=== PATIENT | female | born 1985 | race Caucasian/White ===

== ENCOUNTER 2017-11-13 06:25 | Inpatient (IN) | payer BC, SELFPAY ==
[2017-11-13] MEDS: Lactated Ringers 1,000 ML 50 ML IV (06:56)
[2017-11-13 07:09] VITALS: BMI 27.6
[2017-11-13 07:27] LABS: Hematocrit 36.7 % (37-47); Hemoglobin 11.7 g/dl (12.0-15.0); Mean Corp Hgb Conc 31.9 g/gl (32-36); Mean Corpuscular Hgb 23.4 pg (27.0-32.0); Mean Corpuscular Volume 73.4 fL (81-99); Platelet Count 262 K/mm3 (150-450); RBC Distribution Width CV 15.2 % (11.6-14.6); RBC Distribution Width SD 39.8 fl (35.1-43.9); White Blood Count 12.3 K/mm3 (4.4-11.0)
[2017-11-13] MEDS: Oxytocin 30 units/NS 500 ml 30 UNITS/500 ML IV.SOLN 334 UNITS IV (07:30)
[2017-11-13 07:31] LABS: Scan Indicated on CBC? Y/N NO
[2017-11-13] MEDS: Ketorolac 30 MG/ML Syringe IV (07:42)
[2017-11-13] MEDS: Oxytocin 30 units/NS 500 ml 30 UNITS/500 ML IV.SOLN 167 UNITS IV (08:00)
--- NOTE | 2017-11-13 08:00 | PCM.HP.OB ---
History Date of Admission: 11/13/17 Final SLIME: 11/17/17 Gestational age: 39 Weeks and 3 Days History of this : GBS positive Pertinent Past Medical History: None Allergies No Known Allergies Allergy (Verified 11/13/17 07:02) Current Medications Acetaminophen (Tylenol) 325 - 650 mg PO Q4H PRN PRN PRN Reason: PAIN OR FEVER >100.4F Al Hydroxide/Mg Hydroxide (Mylanta Ii) 15 - 30 ml PO Q4H PRN PRN PRN Reason: INDIGESTION Citric Acid/Sodium Citrate (Bicitra) 30 ml PO UD PRN Penicillin G Potassium/Dextrose (Penicillin G Potassium) 3 mu in 50 mls @ 100 mls/hr IV Q4H SADE Lactated Ringer's () 1,000 mls @ 50 mls/hr IV .Q20H [facility] Last Admin: 11/13/17 06:56 Dose: 50 mls/hr Nalbuphine HCl (Nubain) 5 - 10 mg IV Q3H PRN PRN PRN Reason: PAIN (4-10/10) Ondansetron HCl (Zofran) 4 mg IV Q8H PRN PRN PRN Reason: NAUSEA Promethazine HCl (Phenergan (Ll)) 6.25 - 12.5 mg IV Q4H PRN PRN; Protocol PRN Reason: IF NAUSEA PERSISTS Sodium Chloride () 5 - 15 ml IV UD [facility] Last Admin: 11/13/17 07:48 Dose: Not Given Smoking Status: Never smoker Alcohol: None Drug Use: none Physical Exam General: Alert, Oriented x3 Assessment/Plan 32yo female in labor S/p within 1 hour of arrival to L&D
--- NOTE | 2017-11-13 08:06 | PCM.OB.VAG ---
Vaginal Delivery Maternal Presentation: Active Labor Amniotic Membrane Rupture Type: Artificial Amniotic Fluid Description: Clear Final SLIME: 11/17/17 Gestational age: 39 Weeks and 3 Days Date of Procedure: 11/13/17 Surgery/ Procedure Performed: Spontaneous Vaginal Delivery Type of Anesthesia: Local with 2% lidocaine - nitrous Description of Procedure: Patient c/c/+2. AROM clear fluid. Patient pushed & easily delivered head. Shoulders & body spontaneously followed. Infant placed on maternal abdomen where 3VC clamped & cut in delayed fashion. Placenta delivered with gentle traction. Good uterine tone obtained. Presentation: KEISHA Placental Delivery Description: Spontaneous Placenta Disposition: [facility] Cord Vessel Description: 3 Vessels Cord Entanglement: None Estimated Blood Loss: 200ml Infant A gender: Female (1 minute): 8 (5 minute): 9 Episiotomy Description: None Laceration: 2nd degree - perineal - repaired with 3-0 vicryl Medications given after delivery: IV Pitocin Complications: None
[2017-11-13] MEDS: 0.9% Saline Lock 10 ML Syringe IV (08:37)
[2017-11-13] MEDS: oxyCODONE 5 MG Tablet PO ×2 (09:07→15:49)
[2017-11-13 12:00] VITALS: BP 120/82; PULSE 90; RESP 18; TEMP 36.8
[2017-11-13] MEDS: Ibuprofen 600 MG Tablet PO ×2 (14:21→20:09)
[2017-11-13 15:41] VITALS: BP 121/82; PULSE 62; RESP 18; TEMP 36.7
[2017-11-13 19:30] VITALS: BP 120/86; PULSE 84; RESP 18; TEMP 36.4; O2SAT 98
[2017-11-14 00:15] VITALS: BP 113/72; PULSE 85; RESP 16; TEMP 36.9; O2SAT 98
[2017-11-14 04:10] VITALS: BP 115/90; PULSE 72; RESP 16; TEMP 36.4; O2SAT 98
[2017-11-14] MEDS: Ibuprofen 600 MG Tablet PO ×2 (07:57→14:12)
[2017-11-14] MEDS: Senna/Docusate Sodium 1 Tablet PO (07:57)
[2017-11-14 08:01] VITALS: BP 128/82; PULSE 81; RESP 16; TEMP 36.4; O2SAT 97
--- NOTE | 2017-11-14 08:29 | DCINST_ITS ---
Discharge Diet: No Restrictions Discharge Activity: Return to Normal Activity, May not drive while taking narcotic pain medications., May Shower May resume sexual activity in: 4-6 weeks Additional Activity Instructions:: Nothing in the vagina for 4-6 weeks. You may return to work/school in 6 weeks. Call your doctor if your incision/area has: Continuous Slow Oozing, Sudden Increased Bleeding, Increased Pain/ Swelling, Increased Redness, Foul Smelling Discharge Additional Instructions: If you experience any of the following, contact your healthcare provider. * Bleeding that soaks a pad every hour for 2 hours * Fever 100.4 or higher * Unrelieved incision or abdominal pain * Swelling, redness, discharge or bleeding from your incision or episiotomy site * Your incision begins to separate * Problems urinating (including inability to urinate or burning while urinating) . * Visual changes * Severe headache * Flu-like symptoms * Pain or redness in one of both of your breasts * Pain, warmth, tenderness or swelling in your legs, especially the calf area * Frequent nausea and vomiting * Symptoms of depression or anxiety If you experience any of the following, call 911 or go to the nearest Emergency Room. * Chest pain * Problems breathing * Seizure activity * Partial or complete paralysis of a body part, slurred speech, weakness or drooping of the face, or a sudden inability to walk or hold your balance Allergies/Adverse Reactions: Allergies No Known Allergies Allergy (Verified 11/13/17 07:02) Medications to take at Discharge Vits [Prenatabs FA ] 1 cap PO DAILY 06/23/13 Ibuprofen [Motrin] 600 mg PO Q6H PRN #60 tab 11/14/17 The following prescriptions were given: Ibuprofen [Motrin] 600 mg PO Q6H PRN #60 tab PRN Reason: Pain Orders to be completed after discharge: Electric breast pump Location: None Selected Please Follow Up With: Darren Alvarez - [phone] When: Call to make an appointment with your doctor's office in 6 weeks or as needed. If you had elevated Blood Pressure or 4th degree laceration you will need to be seen in 2 weeks.
--- NOTE | 2017-11-14 08:44 | PCM.PN.BLA ---
Progress Note S: Patient sitting up in bed at this time. Patient reports no issues; denies scotoma, dizziness or SILVESTRE. Denies issues with ambulation or issues with urination. Patient likely will be discharged to home tomorrow as baby did not receive full 2 doses of PCN abx for Positive GBS status. O: VSS, Afebrile Nipples without cracks or blisters, no ecchymoses, no erythema noted FF midline 2FB below umbilicus, scant rubra lochia perineum well approximated +2/4 reflexes in LE, no edema noted, negative calf tenderness to palpation A: 32 y/o s/p PPD #1 P: 1) Anticipate discharge to home tomorrow 2) consultation visit today Dsetinee Ribeiro CNM
[2017-11-14 14:00] VITALS: BP 132/92; PULSE 99; RESP 16; TEMP 36.6; O2SAT 97
[2017-11-14 20:17] VITALS: BP 134/92; PULSE 94; RESP 15; TEMP 36.4; O2SAT 99
[2017-11-15 02:05] VITALS: BP 123/75; PULSE 77; RESP 16; TEMP 36.8; O2SAT 96
[2017-11-15] MEDS: Ibuprofen 600 MG Tablet PO ×2 (02:05→08:07)
[2017-11-15 07:38] VITALS: BP 126/84; PULSE 84; RESP 16; TEMP 36.8; O2SAT 97
[2017-11-15] MEDS: Senna/Docusate Sodium 1 Tablet PO (08:08)
--- NOTE | 2017-11-15 08:49 | PN_ITS ---
Progress Note S: Patient sitting up in bed at this time. Patient denies any complaints or concerns. Patient desires discharge to home today. O: VSS, Afebrile Nipples without cracks or blisters, no erythema or ecchymoses noted Abdomen NT x 4 quadrants, FF midline 2FB below umbilicus Scant rubra lochia, perineum well-approximated +2/4 reflexes in LE, no edema, negative calf tenderness in LE A: 32 y/o s/p , PPD #2, Normal Course P: 1) Discharge patient to home pending discharge 2) Anticipatory PP teaching done 3) Continue 4) RTC at [facility] by 6 week PP Destinee Ribeiro CNM
--- NOTE | 2017-11-15 09:26 | NURSING ---
baby bands verified by nurse and mother. mother signed baby discharge sheet.
== END 2017-11-15 10:20 | disposition home or self-care (01) | DRG 774 ==
PROVIDERS: Admitting Provider Obstetrics & Gynecology; Visit Provider Obstetrics & Gynecology
DX: O98.82 Other maternal infectious and parasitic diseases complicating childbirth (principal); B95.1 Streptococcus, group B, as the cause of diseases classified elsewhere; O70.1 Second degree perineal laceration during delivery; Z3A.39 39 weeks gestation of pregnancy; Z37.0 Single live birth
CPT/HCPCS: 59025; 59050; 85027; 86850; 86900; 99218; J7120; A4216; G0378

== ENCOUNTER 2017-11-20 09:50 | Outpatient (CLI) | payer BC, SELFPAY | END 2017-11-20 10:50 | disposition home or self-care (01) | LOC: WPOUT 09:56 → WP 09:57 | PROVIDERS: Visit Provider Obstetrics & Gynecology | DX: O92.70 Unspecified disorders of lactation (principal) | CPT/HCPCS: 96152 ==

== ENCOUNTER 2021-02-05 12:20 | Inpatient (IN) | payer BC, SELFPAY ==
[2021-02-05] VITALS (31 sets, daily range): BP systolic 114–145; BP diastolic 62–99; PULSE 83–229; TEMP 36.7–37.6; O2SAT 81–100; BMI 29.2
[2021-02-05] MEDS: Lactated Ringers 1,000 ML 50 ML IV (12:40)
[2021-02-05 13:02] LABS: Absolute Lymphocyte Count 1.43 X10^3/uL (0.83-4.51); Absolute Neutrophil Count 7.3 X10^3/uL (2.0-7.7); Basophil# 0.02 X10^3/uL; Basophil% 0.2 % (0-1); Eosinophil# 0.03 X10^3/uL; Eosinophils% 0.3 % (0-5); Hematocrit 32.9 % (37-47); Hemoglobin 9.8 g/dL (12.0-15.0); Lymphocyte # 1.43 X10^3/ul (0.83-4.51); Lymphocyte % 14.9 % (19-41); Mean Corp Hgb Conc 29.8 g/dL (32-36); Mean Corpuscular Hgb 21.4 pg (27.0-32.0); Mean Corpuscular Volume 71.7 fL (81-99); Mean Platelet Vol. 9.7 fl (6.2-12.0); Monocyte# 0.73 X10^3/uL; Monocyte% 7.6 % (0-10); NRBC Flagged by Analyzer 0 % (0-5); Neutrophil # 7.31 X10^3/uL (2.7-7.7); Neutrophil % 76.4 % (47-70); Platelet Count 281 K/mm3 (150-450); RBC Distribution Width CV 15.2 % (11.6-14.6); RBC Distribution Width SD 38.8 fl (35.1-43.9); Red Blood Count 4.59 M/mm3 (4.2-5.4); White Blood Count 9.6 K/mm3 (4.4-11.0)
--- NOTE | 2021-02-05 13:23 | PCM.HP.OB ---
HPI - General General Date of Admission: 02/05/21 HPI Narrative ARVIND SAMS, is a 35 F who presents for induction. PFSH Home Medications vit,[id number] [Prenatabs FA] 1 cap PO DAILY 06/23/13 [History Last Taken 11/12/17 12:00 1 tab] ibuprofen 600 mg PO Q6H PRN #60 tab 11/14/17 [Rx Last Taken Unknown] Allergy/AdvReac Type Severity Reaction Status Date / Time No Known Allergies Allergy Verified 11/13/17 07:02 Social History Smoking Status: Never smoker History Elective abortions Hx Para 3 Spontaneous abortions Hx # Term Pregnancies Ectopic pregnancies Hx # Pregnancies Multiple births # of living children NST FHR Rate Baby A Baseline: 135 Variability:: Moderate Accelerations:: 15 x 15 Decelerations:: Variable Uterine Activity:: Irregular Vital Signs Vital Signs Vital Signs: Weight Weight: 181 lb Body Mass Index (BMI) 29.2 Physical Exam Const alert, oriented x3 and no apparent distress Chest inspection of chest normal Resp normal respiratory effort external exam normal Narrative: cvx - 3.4/70/-2 - AROM clear fluid Labs Labs Labs: Blood Type O POSITIVE Antibody Screen NEGATIVE Hct 32.9 % (37-47) L Hgb 9.8 g/dL (12.0-15.0) L Rhogam given: No Assessment & Plan (1) Supervision of other normal : COMMENT: @ 39&3 PLAN: Admit to L&D Oligohydramnios & borderline BP - proceed with induction/augmentation of labor. S/p AROM & will start pitocin. Borderline BP & h/o gestational hypertension - preE labs GBS negative Pain - epidural as desired COVID pending EFW - less than 4500g, patient with adequate pelvis Routine care
[2021-02-05 13:25] LABS: AST(SGOT) 27 U/L (15-37); Alanine Aminotransfer ALT/SGPT 19 U/L (13-56); Creatinine, Serum 0.57 mg/dL (0.55-1.02); EST Glomerular Filtration Rate 127 mL/min (>60); Est Glom Filt Rate - Afr Amer 154 mL/min (>60); Estimated Creatinine Clearance 130.19 ml/min; Uric Acid 2.9 mg/dL (2.6-6.0)
--- NOTE | 2021-02-05 13:28 | EX.PCM.OBRPT ---
Maternal Data Information Final SLIME: 02/10/21 Gestational age: 39&2 Vaginal Delivery Maternal Presentation Maternal Presentation: Medically Indicated Induction Maternal Presentation: Oligohydramnios Type of Induction: Pitocin and Amniotomy Operative Information Date of Procedure: 02/05/21 Pre-Operative Diagnosis: Oligohydramnios Post-Operative Diagnosis: Same Surgery / Procedure Performed: Spontaneous Vaginal Delivery Type of Anesthesia: Epidural Drain: Galloway to straight drain Estimated Blood Loss: 300ml Time of Delivery: 19:10 Findings Description of Procedure: Patient prepped & draped when C/C/+2. She pushed well to deliver the head. head gently guided to allow delivery of anterior and posterior shoulders. No excess traction placed on head. Body delivered and 3VC clamped & cut in delayed fashion. Placenta delivered with gentle traction and good uterine tone obtained. Presentation: RILEY Amniotic Membrane Rupture Type: Artificial Amniotic Fluid Description: Clear Placental Delivery Description: Expressed Placenta Disposition: [facility] Specimen(s) Removed: Placenta Cord Vessel Description: 3 Vessels Cord Entanglement: None A Gender: Female (1 minute): 9 (5 minute): 9 Delayed Cord Clamping: Yes Post Vaginal Delivery Medications Given After Delivery: IV Pitocin Episiotomy Description: None Laceration: 2nd degree (perineal - repaired with 3-0 vicryl) Complication Complications: None
[2021-02-05 13:34] LABS: Protein, Urine (Random) < 6.0 mg/dL (<11.9)
[2021-02-05] MEDS: Oxytocin 30 units/NS 500 ml 30 UNITS/500 ML IV.SOLN IV (14:05)
[2021-02-05] MEDS: Lactated Ringers 500 ML 999 ML IV (15:56)
[2021-02-05] MEDS: fentaNYL-bupivacaine (epidural) 100 ML BAG EPIDURAL (16:42)
[2021-02-05] MEDS: Lactated Ringers 1,000 ML 200 ML IV (18:08)
[2021-02-05] MEDS: Oxytocin 30 units/NS 500 ml 30 UNITS/500 ML IV.SOLN 334 UNITS IV (19:01)
[2021-02-05] MEDS: Ibuprofen 600 MG Tablet PO (20:57)
[2021-02-05] MEDS: 0.9% Saline Lock 10 ML Syringe IV (21:50)
[2021-02-06 00:15] VITALS: BP 111/71; PULSE 86; RESP 16; TEMP 36.6; O2SAT 96
[2021-02-06] MEDS: Acetaminophen 500 MG Tablet 1000 MG PO ×2 (00:34→09:54)
[2021-02-06] MEDS: Ibuprofen 600 MG Tablet PO ×2 (05:13→15:14)
[2021-02-06 05:14] VITALS: BP 109/79; PULSE 93; RESP 16
--- NOTE | 2021-02-06 08:04 | PN.OBGYN_ITS ---
Subjective Subjective patient seen at bedside, doing well. Patient reports good pain control. lochia mild. breast feeding. denies SILVESTRE. Objective Data Objective Data Vital Signs: Vital Signs Temp Pulse Resp BP Pulse Ox 97.9 F 93 16 109/79 96 02/06/21 00:15 02/06/21 05:14 02/06/21 05:14 02/06/21 05:14 02/06/21 00:15 Oxygen Delivery Method Room Air Weight: 82.1 kg Body Mass Index (BMI) 29.2 Intake & Output: Intake and Output for Last 24 Hours 02/04/21 02/05/21 02/06/21 23:59 23:59 23:59 Intake Total 2284.10 / 2284.10 Output Total 850 / 850 300 / 300 Balance 1434.10 / 1434.10 -300 / -300 Lab / Micro Data Result Diagrams: 02/05/21 12:40 02/05/21 12:40 Labs: Laboratory Results - last 24 hr 02/05/21 02/05/21 02/05/21 12:40 12:40 12:40 WBC 9.6 RBC 4.59 Hgb 9.8 L Hct 32.9 L MCV 71.7 L MCH 21.4 L MCHC 29.8 L RDW Std Deviation 38.8 RDW Coeff of Chris 15.2 H Plt Count 281 MPV 9.7 Immature Gran % (Auto) 0.600 Neut % (Auto) 76.4 H Lymph % (Auto) 14.9 L [place] % (Auto) 7.6 Eos % (Auto) 0.3 Baso % (Auto) 0.2 Absolute Neuts (auto) 7.3 Absolute Lymphs (auto) 1.43 Nucleated RBC % 0 Creatinine 0.57 Estim Creat Clear Calc 130.19 Est GFR (MDRD) Af Amer 154 Est GFR (MDRD) Non-Af 127 Uric Acid 2.9 AST 27 ALT 19 U Random Total Protein Urine Creatinine Protein/Creatinin Ratio Blood Type O POSITIVE Antibody Screen NEGATIVE 02/05/21 13:10 WBC RBC Hgb Hct MCV MCH MCHC RDW Std Deviation RDW Coeff of Chris Plt Count MPV Immature Gran % (Auto) Neut % (Auto) Lymph % (Auto) [place] % (Auto) Eos % (Auto) Baso % (Auto) Absolute Neuts (auto) Absolute Lymphs (auto) Nucleated RBC % Creatinine Estim Creat Clear Calc Est GFR (MDRD) Af Amer Est GFR (MDRD) Non-Af Uric Acid AST ALT U Random Total Protein < 6.0 Urine Creatinine 25.70 Protein/Creatinin Ratio TNP Blood Type Antibody Screen Micro: Microbiology 02/05/21 12:45 Mucosa - Nose SARS-CoV-2 Antigen (Rapid) - Final Assessment & Plan (1) Vaginal delivery: PLAN: PPD# 1 , Doing well Routine care pain mgmt ambulation BP stable- continue to monitor dc home anticipated tonight
--- NOTE | 2021-02-06 08:05 | PCM.DC ---
Discharge Instructions Diet Discharge Diet: No restrictions Activity Discharge Activity: Return to Normal Activity May resume sexual activity in: 6-8 weeks Dressing / Incision Call your doctor if you observe: Fever of 101 or Higher, Inability to urinate, Using more than one pad per hour and Uncontrolled pain Follow Up Care Please Follow Up With: Montse Mosqueda MD When: 1-2 weeks post and again at 6 weeks post . [phone] Test Results: Test results from this visit will be discussed in further detail at your follow-up appointment, if applicable. Discharge Plan Admission Admit Date/Time: 02/05/21 12:20 Attending Provider: Darren Alvarez Instructions Forms: Information Patient Instructions: After a Vaginal Discharge Orders/Prescriptions Prescriptions: Continued vit,[id number] [Prenatabs FA] 1 TABLET tablet 1 cap PO DAILY RF: 0 ibuprofen 600 MG tablet 600 mg PO Q6H PRN (Reason: Pain) Qty: 60 RF: 1
[2021-02-06 08:10] VITALS: BP 117/76; PULSE 78; RESP 16; TEMP 36.6; O2SAT 99
[2021-02-06 15:33] VITALS: BP 138/85; PULSE 83; RESP 16; TEMP 36.8; O2SAT 100
[2021-02-06 20:36] VITALS: BP 125/81; PULSE 85; RESP 16; TEMP 36.8
== END 2021-02-06 21:30 | disposition home or self-care (01) | DRG 807 ==
PROVIDERS: Admitting Provider Obstetrics & Gynecology; Visit Provider Obstetrics & Gynecology
DX: O41.03X0 Oligohydramnios, third trimester, not applicable or unspecified (principal); Z37.0 Single live birth; O70.1 Second degree perineal laceration during delivery; Z3A.38 38 weeks gestation of pregnancy
CPT/HCPCS: 59050; 82565; 82570; 84156; 84450; 84460; 84550; 85025; 85027; 86850; 86900; 86901; 87426; 99218; J7120; A4216; G0378